=== PATIENT | male | born 2000 ===

== ENCOUNTER 2019-03-19 00:34 | Day surgery (SDC) | payer SELFPAY ==
[~2019-03-19] VITALS: Ht 180.3 cm; Wt 68.0 kg
[2019-03-19] MEDS ORDERED: PROPOFOL EMUL(*) 10MG/ML 20 ML 20 ML ONE (14:14)
[2019-03-19] MEDS ORDERED: ROCURONIUM BR 10 MG/ML 5 ML SY 5 ML ONE (14:14)
[2019-03-19] MEDS ORDERED: ONDANSETRON 4 MG/2 ML VIAL ONE (14:14)
[2019-03-19] MEDS ORDERED: DEXAMETHASONE SOD 4 MG/ML VIAL ONE (14:14)
[2019-03-19] MEDS ORDERED: SUGAMMADEX SOD 200 MG/2 ML SDV ONE (14:14)
[2019-03-19] MEDS ORDERED: fentaNYL CITR 250 MCG/5 ML AMP ONE (14:14)
[2019-03-19] MEDS ORDERED: LIDOCAINE MPF 1% 5 ML VIAL ONE (14:14)
[2019-03-19] MEDS ORDERED: KETAMINE HCL 200 MG/20 ML MDV ONE (14:19)
[2019-03-19 15:36] VITALS: BP 121/66
[2019-03-19] MEDS ORDERED: MIDAZOLAM 2 MG/2 ML VIAL IVP PRN (16:30)
[2019-03-19] MEDS ORDERED: CELECOXIB 200 MG CAP PO ONE (16:30)
[2019-03-19] MEDS ORDERED: ceFAZolin(*) 1 GM VIAL 1 GM in NS(*) 0.9% 100 ML MINI-BAG 100 ML IVPB ONE (16:30)
[2019-03-19] MEDS ORDERED: NORMOSOL R SOLN(*) 1000 ML BAG 1,000 ML IV PRN (16:30)
[2019-03-19] MEDS ORDERED: FAMOTIDINE 20 MG TAB PO ONE (16:30)
[2019-03-19] MEDS ORDERED: LIDOCAINE/SOD BICARB 8.4% SYR ID ONE (16:30)
[2019-03-19] MEDS ORDERED: ROPIVACAINE 0.2% 20 ML VIAL ONE (19:12)
[2019-03-19] MEDS ORDERED: fentaNYL CITR 100 MCG/2 ML AMP ONE (20:11)
--- NOTE | 2019-03-19 20:28 | OPERATIVE REPORT 1 ---
EVENT DATE: March 19, 2019 SURGEON: Enoc Castillo MD ANESTHESIOLOGIST: Edward Collins MD ANESTHESIA: General LMA anesthesia. CLINICAL SPECIALTY REP: WEI Mane PREOPERATIVE DIAGNOSIS Comminuted and displaced left clavicle fracture. POSTOPERATIVE DIAGNOSIS Comminuted and displaced left clavicle fracture. PROCEDURE PERFORMED Open reduction, internal fixation of the left clavicle. FINDINGS The patient had a fracture of the clavicle that was amenable for fixation with a lag screw and a plate. ESTIMATED BLOOD LOSS About 50 mL. DRAINS None. COMPLICATIONS None. IMPLANTS USED Synthes low profile pelvic reconstruction plate and an independent lag screw. SPECIMENS None. TOURNIQUET TIME Not applicable. INDICATIONS AND HISTORY This patient is a 18-year-old male who presented to my clinic this last week with a comminuted displaced mid shaft clavicle fracture approaching the distal third. We talked about the implications of the fracture, and he said he had quite a bit of pain and irritation associated with it and wants to use his hand, and so therefore, he wanted to go ahead with operative fixation today, 03/19/2019. The risks and benefits were discussed with the patient, and informed consent was obtained at the last clinic visit. We talked about there is no guarantee it makes him better, and he might need to have the plate out at a later time. DESCRIPTION OF PROCEDURE As the patient was brought in the operating room, he and the procedure were both verified. He was placed supine on the operating room and induced and intubated by Anesthesia. He was then put in a beach chair type position, and left arm was prepped and draped in the usual fashion. A timeout was observed verifying the correct patient and procedure. The standard incision was made over the anterior aspect of the clavicle. It was taken through the skin and subcutaneous tissue and through the muscle tissue until we identified the fracture fragments. Once we were able to identify the fracture fragments, I was able to then piece the comminuted portion together on the lateral portion and get it pinned together. Once I did this, I then put in a lag screw in order to hold it in place. Once I held it in place with an independent lag screw, we then put those two pieces back to the proximal piece and then bent and contoured a low-profile pelvic reconstruction plate with seven holes to the anterior superior aspect of the clavicle. Once it was in good position, we had direct visualization. I then put a screw proximally and a screw distally in order to hold it in place and then compress the fracture itself. We took x-rays verifying that everything looked good on those with the C-arm images that we had in the room. I then irrigated with copious amounts of saline, which I had throughout the case and then filled the rest of the five screws without any difficulty, compressing the plate down to the bone and holding the fracture together. We then took final C-arm images verifying that everything was in good position. Once we verified that everything was in good position, we then irrigated again and then closed the periosteum and the musculature with a 3-0 Vicryl in a running stitch. This was then followed by a 3-0 Vicryl in the subcutaneous tissue and then a subcuticular 4-0 running Monocryl and Prineo dressing over the top. The patient was then awakened, extubated, and transferred to PACU in stable condition. HAYDEE
[2019-03-19] MEDS ORDERED: HYDR-653 PO (20:42)
[2019-03-19 21:00] VITALS: BP 124/78
[2019-03-19] MEDS ORDERED: APAP/HYDROCODONE 325/5 TAB PO ONE ×2 (21:10→21:25)
[2019-03-19 21:15] VITALS: BP 123/85
[2019-03-19 21:30] VITALS: BP 93/83
[2019-03-19 21:31] VITALS: BP 119/84
[2019-03-19] MEDS ORDERED: ACET/HYDROC 5/325MG TH ER ONLY 2 TAB/BOTTLE ONE (21:40)
--- NOTE | 2019-03-20 01:06 | RADIOLOGY IMAGING REPORT ---
FACILITY: [facility] PATIENT NAME: Hussain Barajas : 2000 MR: [id number] V: [id number] EXAM DATE: ORDERING PHYSICIAN: LUIS NDIAYE TECHNOLOGIST: Location: [facility] Patient: Hussain Barajas : 2000 Visit/Account:[id number] Date of Sevice: 03/19/2019 Portable left clavicle in OR: Indication: Operative reduction of left clavicular fracture. Technique: 2 spot images were submitted. Fluoroscopy time was 2.2 seconds. Comparison: None available. Findings: The images demonstrate a surgical plate and multiple screws in the mid and distal left clav icle. The hardware appears unremarkable. The skeletal structures are in anatomic alignment. Impression: Satisfactory postop appearance. Report Dictated By: Bronson Head MD at 03/19/2019 10:48 PM Report E-Signed By: Bronson Head MD at 03/20/2019 1:00 AM WSN:[id number]
== END 2019-03-19 21:02 | disposition home or self-care (01) ==
LOC: OR 00:34
PROVIDERS: ATTEND Orthopaedic Surgery
DX: S42.022A Displaced fracture of shaft of left clavicle, initial encounter for closed fracture (principal)
CPT/HCPCS: 23515; 76000; C1713; J0690; J1100; J2001; J2250; J2405; J2704; J2795; J3010; J3490